=== PATIENT | male | born 1960 | race Caucasian/White ===

== ENCOUNTER 2019-04-25 12:00 | Emergency (ER) | payer OTHER, BC ==
--- NOTE | 2019-04-25 13:15 | EDM.PDOC ---
ED HPI GENERAL MEDICAL PROBLEM - General Chief Complaint: General Stated Complaint: DIZZY, VOMITTING, WEAK Time Seen by Provider: 04/25/19 12:14 Source of Information: Reports: Patient History Limitations: Reports: No Limitations - History of Present Illness INITIAL COMMENTS - FREE TEXT/NARRATIVE: patient presents with concern for sudden onset feeling "dizzy" this morning around 1030am. He was out working around with the tractor after having attended a meeting and suddenly felt unsteady on his feet. Did not feel like passing out, more weak all over. No marked spinning sensation. He tried to work through it then decided that he wasn't able too, drank some water which he threw up, then called his to bring him here. Has never had anything like this before, so bad it made it difficult to walk. Was much worse after the car ride. Now feels a bit better reinier sitting with eyes closed. Has noticed that he doesn't tolerate the heat as well as getting older, but tries to drink a lot of water in general. Works outside. He denies changes in vision or hearing, ringing in ears, neck pain, headache, difficulty swallowing. He also denies any symptoms such as palpitations, chest pain, shortness of breath, or feeling like he might pass out. No recent change in urination, no diarrhea. [place] fine prior to leaving for work. He is s/p ablation for afib w/ RVR, and has not had any episodes since. In March had a rather lengthy episode of feeling unwell, muscles aches, weakness, fatigue that lasted nearly 10 days. Negative w/u for lyme disease and [place] by PCP. 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 Father d/c of COPD, was heavy smoker. - Tobacco Use Smoking Status *Q: Never Smoker - Caffeine Use Caffeine Use: Reports: Coffee - Alcohol Use Alcohol Use History: No - Recreational Drug Use Recreational Drug Use: No - Living Situation & Occupation Living situation: Reports: Occupation: Employed ED ROS GENERAL - Review of Systems Review Of Systems: See Below Constitutional: Reports: Fatigue. Denies: Fever, Chills, Night Sweats, Diaphoresis HEENT: Reports: No Symptoms Respiratory: Reports: No Symptoms Cardiovascular: Reports: No Symptoms Endocrine: Denies: Polydypsia, Polyuria GI/Abdominal: Reports: Vomiting. Denies: Abdominal Pain, Constipation, Diarrhea : Reports: No Symptoms Musculoskeletal: Denies: Muscle Pain Skin: Denies: Rash, Erythema Neurological: Reports: Dizziness (vertigo ). Denies: Headache, Numbness, Tingling, Weakness Hematologic/Lymphatic: Denies: Easy Bleeding, Easy Bruising ED EXAM, GENERAL - Physical Exam Exam: See Below Course - Vital Signs Text/Narrative:: history most consistent with near syncopal event vs possible early heat exhaustion. Also remote possibility of food poisoning. Vitals stable and patient feeling better now. Will get labs, start IVF, on tele. EKG no abnormalities. Last Recorded V/S: Last Vital Signs Temp 36.6 C 04/25/19 14:32 Pulse 62 04/25/19 14:32 Resp 16 04/25/19 14:32 BP 132/72 04/25/19 14:32 Pulse Ox 100 04/25/19 14:32 - Orders/Labs/Meds Orders: Active Orders 24 hr Category Date Time Status Sodium Chloride 0.9% [Normal Saline] 1,000 ml Med 04/25/19 13:30 Active IV ASDIRECTED Medication Orders Sodium Chloride (Normal Saline) 1,000 mls @ 500 mls/hr IV ASDIRECTED ASHLEY Last Admin: 04/25/19 13:29 Dose: 500 mls/hr Labs: Laboratory Tests 04/25/19 04/25/19 04/25/19 Range/Units 13:15 13:15 13:15 WBC 7.1 (4.5-12.0) X10-3/uL RBC 4.73 (4.30-5.75) x10(6)uL Hgb 14.2 (13.5-17.8) g/dL Hct 41.3 (30.0-51.3) % MCV 87.3 (80-96) fL MCH 30.0 (27.7-33.6) pg MCHC 34.4 (32.2-35.4) g/dL RDW 14.5 (11.5-15.5) % Plt Count 186 (125-369) X10(3)uL MPV 7.9 (7.4-10.4) fL Neut % (Auto) 68.6 (46-82) % Lymph % (Auto) 25.5 (13-37) % Lynn % (Auto) 5.0 (4-12) % Eos % (Auto) 1 (1.0-5.0) % Baso % (Auto) 0 (0-2) % Neut # (Auto) 4.9 (1.6-8.3) # Lymph # (Auto) 1.8 (0.6-5.0) # Lynn # (Auto) 0.4 (0.0-1.3) # Eos # (Auto) 0.0 (0.0-0.8) # Baso # (Auto) 0.0 (0.0-0.2) # Sodium 139 (135-145) mmol/L Potassium 4.2 (3.5-5.3) mmol/L Chloride 106 (100-110) mmol/L Carbon Dioxide 24 (21-32) mmol/L BUN 22 H (7-18) mg/dL Creatinine 1.1 (0.70-1.30) mg/dL Est Cr Clr Drug Dosing 77.01 mL/min Estimated GFR (MDRD) > 60 (>60) BUN/Creatinine Ratio 20.0 (9-20) Glucose 122 H (80-116) mg/dL Calcium 8.3 L (8.6-10.2) mg/dL Magnesium 1.8 (1.8-2.5) mg/dL Troponin I < 0.017 L (<0.017-0.056) ng/mL Meds: Medications Generic Name Dose Route Start Last Admin Trade Name Valentino PRN Reason Stop Dose Admin Sodium Chloride 1,000 mls @ 500 mls/hr 04/25/19 13:30 04/25/19 13:29 Normal Saline IV 500 mls/hr ASDIRECTED ASHLEY Administration - Re-Assessments/Exams Free Text/Narrative Re-Assessment/Exam: patient feeling much improved since arrival. difficult lab draw/IV start. discussed common causes of near syncope and concern in his situation with his heart history, although after reviewing the details carefully it does not sound like he had any sort of arrhythmia or event orthostatic blood pressures within normal limits 04/25/19 15:03 Free Text/Narrative Re-Assessment/Exam: patient able to walk around department without any symptoms and is feeling much better. Would very much like to go. labs reviewed and are all within normal limits. discussed signs or symptoms which should prompt need for immediate reevaluation and also taking care and heat over the next couple of days. Would like him to follow up with PCP later this week if possible and he is reluctantly in agreement with this. telemetry reviewed prior to discharge and no abnormalities noted while here. Departure - Departure Time of Disposition: 14:41 Disposition: Home, Self-Care 01 Condition: Good Clinical Impression: Heat causing syncope Qualifiers: Encounter type: initial encounter Qualified Code(s): T67.1XXA - Heat syncope, initial encounter - Discharge Information *PRESCRIPTION DRUG MONITORING PROGRAM REVIEWED*: Not Applicable *COPY OF PRESCRIPTION DRUG MONITORING REPORT IN PATIENT [place]: Not Applicable Instructions: Heat Exhaustion Information, Near-Syncope Referrals: Nirmal Jackman MD [Primary Care Provider] - Forms: ED Department Discharge Additional Instructions: followup with Dr. Jackman on 04/27 -- at 2pm if symptoms recur, try getting into cooler place and lying down. If persist should return for re-evaluation. If other symptoms of heart attack as per handout, or heart arrhythmia like you had before, also return to ER immediately continue to drink lots of water as well take very good care, - My Orders Last 24 Hours: My Active Orders 04/25/19 13:30 Sodium Chloride 0.9% [Normal Saline] 1,000 ml IV ASDIRECTED - Assessment/Plan Last 24 Hours: My Active Orders 04/25/19 13:30 Sodium Chloride 0.9% [Normal Saline] 1,000 ml IV ASDIRECTED
[2019-04-25] MEDS ORDERED: Sodium Chloride 0.9% 1,000 ML IV SCH (13:30)
[2019-04-25 14:33] VITALS: BP 132/72; PULSE 62
== END 2019-04-25 15:12 | disposition home or self-care (01) ==
LOC: FB.ED 12:00
DX: T67.1XXA Heat syncope, initial encounter (principal); I48.91 Unspecified atrial fibrillation
CPT/HCPCS: 36415; 80048; 83735; 84484; 85025; 93005; 96360; 96361; 99284; J7030